=== PATIENT | male | born 1940 ===

== ENCOUNTER 2017-08-29 04:28 | Emergency (ER) | payer MEDICARE ==
[2017-08-29 04:38] VITALS: O2SAT 100
[2017-08-29] MEDS ORDERED: Sodium Chloride 0.9% 1,000 ML IV STA (05:33)
--- NOTE | 2017-08-29 05:46 | ED PDOC ---
HPI: Back Time Seen by Provider: 08/29/17 04:45 Chief Complaint (Nursing): Back Pain Chief Complaint (Provider): Back Pain History Per: Patient, Family History/Exam Limitations: no limitations Onset/Duration Of Symptoms: Days Current Symptoms Are (Timing): Still Present Additional Complaint(s): Derrick Waters is a 77 year old male with a past medical history of kidney stones and cardiac arrhythmia who is presenting to the ED for evaluation of right flank pain and associated vomiting onset yesterday. Patient states he felt acid and burning when throwing up but denies any fevers. Patient offers no other medical complaints at this time. PMD: [facility] Provider Past Medical History Reviewed: Historical Data, Nursing Documentation, Vital Signs Vital Signs: Last Vital Signs Temp 98.4 F 08/29/17 04:31 Pulse 100 H 08/29/17 04:31 Resp 18 08/29/17 04:31 BP 116/74 08/29/17 04:31 Pulse Ox 100 08/29/17 04:31 - Medical History PMH: Cardia Arrhythmia, Kidney Stones (RT. KIDNEY) - Surgical History Other surgeries: cervical neck fusion, colostomy - Family History Family History: States: Unknown Family Hx - Social History Current smoker - smoking cessation education provided: No Alcohol: None Drugs: Denies - Home Medications Home Medications: Ambulatory Orders Medication Instructions Recorded Ondansetron ODT [Zofran ODT] 4 mg PO Q8 PRN #12 odt 08/29/17 - Allergies Allergies/Adverse Reactions: Allergies Allergy/AdvReac Type Severity Reaction Status Date / Time ciprofloxacin [From Cipro] Allergy RASH Verified 08/29/17 04:31 Review of Systems ROS Statement: Except As Marked, All Systems Reviewed And Found Negative Constitutional: Negative for: Fever Gastrointestinal: Positive for: Vomiting Musculoskeletal: Positive for: Back Pain Physical Exam - Reviewed Nursing Documentation Reviewed: Yes Vital Signs Reviewed: Yes - Physical Exam Appears: Positive for: Non-toxic, No Acute Distress Head Exam: Positive for: ATRAUMATIC, NORMAL INSPECTION, NORMOCEPHALIC Skin: Positive for: Normal Color, Warm, DRY Eye Exam: Positive for: EOMI, Normal appearance, PERRL ENT: Positive for: Normal ENT Inspection Neck: Positive for: Normal Cardiovascular/Chest: Positive for: Regular Rate, Rhythm. Negative for: Murmur Respiratory: Positive for: Normal Breath Sounds. Negative for: Respiratory Distress Gastrointestinal/Abdominal: Positive for: Normal Exam, Soft. Negative for: Tenderness Back: Positive for: R CVA Tenderness Extremity: Positive for: Normal ROM. Negative for: Deformity, Swelling Neurologic/Psych: Positive for: Alert, Oriented. Negative for: Motor/Sensory Deficits - Laboratory Results Result Diagrams: 08/29/17 06:23 08/29/17 06:23 - ECG O2 Sat by Pulse Oximetry: 100 (RA) Pulse Ox Interpretation: Normal - Progress Re-evaluation Time: 10:51 Condition: Re-examined, Improved Medical Decision Making Medical Decision Making: Time: 5:33 Impression: Right Flank Pain Differentials: Renal colic, nephrolithiasis, Urinary tract infection, musculoskeletal pain Plan: --CT Abd/Pelvis --BMP --ED Urine Dipstick --CBC --IV Fluids --Toradol [address] abdomen reveiwed. Scribe Attestation: Documented by, Gianna Mesa acting as a scribe for Randee Landon MD. Provider Scribe Attestation: All medical record entries made by the Scribe were at my direction and personally dictated by me. I have reviewed the chart and agree that the record accurately reflects my personal performance of the history, physical exam, medical decision making, and the department course for this patient. I have also personally directed, reviewed, and agree with the discharge instructions and disposition. Disposition - Clinical Impression Clinical Impression: Back pain - Patient ED Disposition Is Patient to be Admitted: No Counseled Patient/Family Regarding: Studies Performed, Diagnosis - Disposition Disposition: Routine/Home Disposition Time: 07:00 Condition: GOOD Additional Instructions: Take motrin for pain. Follow up with your PCP in 2-3 days. Prescriptions: Ondansetron ODT [Zofran ODT] 4 mg PO Q8 PRN #12 odt PRN Reason: Nausea/Vomiting Instructions: Low Back Pain in Adults
[2017-08-29 06:27] LABS: BASO # 0.1 K/uL (0.0-0.2); BASO % 1.1 % (0.0-2.0); EOS # 0.1 K/uL (0.0-0.7); EOS % 0.8 % (0.0-4.0); HEMOGLOBIN 13.7 g/dL (12.0-18.0); LYMPH # 2.7 K/uL (1.0-4.3); LYMPH % 26.7 % (20.0-40.0); MEAN CELL VOLUME 88.6 fl (80.0-94.0); MEAN CORPUSCULAR HEMOGLOBIN 29.7 pg (27.0-31.0); MEAN CORPUSCULAR HGB CONC 33.5 g/dL (33.0-37.0); MEAN PLATELET VOLUME 9.3 fl (7.2-11.7); MONO # 0.8 K/uL (0.0-0.8); MONO % 7.4 % (0.0-10.0); NEUT # 6.6 K/uL (1.8-7.0); NRBC % 0.1 % (0.0-0.0); RBC 4.61 Mil/uL (4.40-5.90); RED CELL DISTRIBUTION WIDTH 13.6 % (11.5-14.5); WHITE BLOOD COUNT 10.2 K/uL (4.8-10.8)
[2017-08-29 06:39] LABS: BLOOD UREA NITROGEN 26 mg/dl (9-20); CALCIUM 9.7 mg/dL (8.4-10.2); GFR AFRICAN-AMERICAN > 60; GFR NON-AFRICAN AMERICAN > 60
[2017-08-29 07:29] VITALS: BP 146/81; PULSE 77; RESP 16; TEMP 98.1
--- NOTE | 2017-08-29 11:07 | CT ---
PROCEDURE: CT Abdomen and Pelvis without intravenous contrast HISTORY: right flank pain COMPARISON: None. TECHNIQUE: Contiguous images were obtained from the domes of the diaphragms to the upper thighs without the administration of intravenous contrast. Oral contrast was not administered. Radiation dose: Total exam DLP = 349.4 mGy-cm. This CT exam was performed using one or more of the following dose reduction techniques: Automated exposure control, adjustment of the mA and/or kV according to patient size, and/or use of iterative reconstruction technique. FINDINGS: LOWER THORAX: Unremarkable. LIVER: Multiple hepatic cysts. No gross lesion or ductal dilatation. GALLBLADDER AND BILE DUCTS: Unremarkable. PANCREAS: Unremarkable. No gross lesion or ductal dilatation. SPLEEN: Unremarkable. ADRENALS: Unremarkable. No mass. KIDNEYS AND URETERS: Bilateral renal scarring. Punctate nonobstructive right interpolar calculus. No hydronephrosis. No solid mass. VASCULATURE: Unremarkable. No aortic aneurysm. BOWEL: Small hiatal hernia. Gastrostomy tube. No obstruction. No gross mural thickening. APPENDIX: No findings to suggest acute appendicitis. PERITONEUM: Moderate fat containing left inguinal hernia. No free fluid. No free air. LYMPH NODES: Unremarkable. No enlarged lymph nodes. BLADDER: Unremarkable. REPRODUCTIVE: Prostatomegaly. BONES: Diffuse idiopathic skeletal hyperostosis. No acute fracture. OTHER FINDINGS: None. IMPRESSION: No acute abdominal pelvic pathology. Multiple nonacute findings as above.
== END 2017-08-29 07:29 | disposition home or self-care (01) ==
LOC: H.ER 04:28
DX: M54.9 Dorsalgia, unspecified (principal); R10.9 Unspecified abdominal pain
CPT/HCPCS: 74176; 80048; 85025; 96361; 96374; 99283; J1885; J7030